=== PATIENT | female | born 1985 | race Caucasian/White ===

== ENCOUNTER 2022-07-01 12:55 | Outpatient (CLI) | payer BC, SELFPAY | END 2022-07-01 12:56 | disposition home or self-care (01) | LOC: US 12:56 | PROVIDERS: PCP Physician Assistant Medical; Visit Provider Pediatrics Neonatal-Perinatal Medicine | DX: Z34.92 Encounter for supervision of normal pregnancy, unspecified, second trimester (principal); Z3A.21 21 weeks gestation of pregnancy | CPT/HCPCS: 76811 ==

== ENCOUNTER 2022-08-19 11:49 | Outpatient (CLI) | payer BC, SELFPAY ==
[2022-08-21 01:21] LABS: Rapid Plasma Reagin (RPR) Non Reactive (Non Reactive)
== END 2022-08-19 11:50 | disposition home or self-care (01) ==
PROVIDERS: PCP Physician Assistant Medical; Visit Provider Obstetrics & Gynecology
DX: Z34.93 Encounter for supervision of normal pregnancy, unspecified, third trimester (principal); Z3A.28 28 weeks gestation of pregnancy
CPT/HCPCS: 86592

== ENCOUNTER 2022-09-04 12:54 | Outpatient (CLI) | payer BC, SELFPAY ==
--- NOTE | 2022-09-04 13:00 | CRLHL7_ITS ---
For Patients: As a result of the Century Cures Act, medical imaging exams and procedure reports are released immediately into your electronic medical record. You may view this report before your referring provider. If you have questions, please contact your health care provider. INDICATION: Third trimester scan, evaluate growth. Renal pelvis follow-up. COMPARISON: 07/01/2022 TECHNIQUE: Real time bustillos scale imaging of the fetus was performed. FINDINGS: Sonographic imaging demonstrates a single living intrauterine gestation. Fetus demonstrates a regular cardiac rate of 132 beats per minute. Fetus has a vertex position. The placenta lies anteriorly. Amniotic fluid volume appears normal and there is a single deepest vertical pocket: 7.0 cm. The estimated weight is 1766gm which lies at the 68th %. On the prior OB ultrasound exam dated 07/01/2022 the estimated weight was at the 80th%. BPD 74th percentile. HC 63rd percentile. AC 80th percentile. FL 34th percentile. The HC/AC ratio measures 1.06 range (0.96-1.15). IMPRESSION: Left renal pelvis measures 3 millimeters, considered normal in the 3rd trimester. Right renal pelvis measures 5.2 millimeters. Less than 7 millimeters considered normal in the 3rd trimester. Additional late third-trimester follow-up could be considered as indicated. Sonographic gestational age 31 weeks 4 days and sonographic due date 11/02/2022. Sonographic age is 1 week ahead of the clinical age. Estimated weight is 68th percentile. Abdominal circumference 80th percentile. Dictated by Abhilash Blevins MD @ 09/07/2022 10:22:39 AM (Electronically Signed)
== END 2022-09-04 12:55 | disposition home or self-care (01) ==
LOC: AMB 12:55
PROVIDERS: PCP Physician Assistant Medical; Visit Provider Obstetrics & Gynecology
DX: Z34.93 Encounter for supervision of normal pregnancy, unspecified, third trimester (principal); Z3A.31 31 weeks gestation of pregnancy
CPT/HCPCS: 76816

== ENCOUNTER 2022-10-12 09:50 | Outpatient (CLI) | payer BC, SELFPAY ==
--- NOTE | 2022-10-12 09:45 | CRLHL7_ITS ---
For Patients: As a result of the Century Cures Act, medical imaging exams and procedure reports are released immediately into your electronic medical record. You may view this report before your referring provider. If you have questions, please contact your health care provider. INDICATION: Third trimester scan, evaluate growth. COMPARISON: 09/04/2022 TECHNIQUE: Real time bustillos scale imaging of the fetus was performed as well as color Doppler and spectral Doppler analysis of the umbilical artery. FINDINGS: Sonographic imaging demonstrates a single living intrauterine gestation. Fetus demonstrates a regular cardiac rate of 139 beats per minute. Fetus has a vertex position. The placenta lies anteriorly. Amniotic fluid volume appears normal and there is a single deepest vertical pocket: 2.7 cm. The estimated weight is 2646gm which lies at the 32nd %. On the prior OB ultrasound exam dated 09/04/2022 the estimated weight was at the 68th%. BPD 22nd percentile. HC 20th percentile. AC 38th percentile. FL 33rd percentile. The HC/AC ratio measures 1.02 range (0.93-1.10). IMPRESSION: Sonographic gestational age 35 weeks 3 days and sonographic due date 11/13/2022. Sonographic age is 4 days behind the clinical age. Estimated weight 32nd percentile. Abdominal circumference 38th percentile. Dictated by Abhilash Blevins MD @ 10/12/2022 11:15:46 AM (Electronically Signed)
== END 2022-10-12 09:51 | disposition home or self-care (01) ==
LOC: US 09:51
PROVIDERS: PCP Physician Assistant Medical; Visit Provider Obstetrics & Gynecology
DX: Z34.93 Encounter for supervision of normal pregnancy, unspecified, third trimester (principal); Z3A.36 36 weeks gestation of pregnancy
CPT/HCPCS: 76816; 87081; 87653

== ENCOUNTER 2022-10-14 15:51 | Outpatient (CLI) | payer BC, SELFPAY ==
--- NOTE | 2022-10-14 16:00 | CRLHL7_ITS ---
For Patients: As a result of the Century Cures Act, medical imaging exams and procedure reports are released immediately into your electronic medical record. You may view this report before your referring provider. If you have questions, please contact your health care provider. INDICATION: ANGELA check COMPARISON: 10/12/2022 TECHNIQUE: Real time bustillos scale imaging of the fetus was performed. FINDINGS: Sonographic imaging demonstrates a single living intrauterine gestation. Fetus demonstrates a regular cardiac rate of 125 beats per minute. Fetus has a vertex position. The placenta lies anteriorly. Amniotic fluid volume appears lower limits of normal and there is a single deepest vertical pocket: 4.6 cm. ANGELA 10.3 cm. IMPRESSION: ANGELA 10.3 cm. Dictated by Abhilash Blevins MD @ 10/16/2022 8:20:50 AM (Electronically Signed)
== END 2022-10-14 15:52 | disposition home or self-care (01) ==
LOC: US 15:53
PROVIDERS: PCP Physician Assistant Medical; Visit Provider Obstetrics & Gynecology
DX: Z34.90 Encounter for supervision of normal pregnancy, unspecified, unspecified trimester (principal)
CPT/HCPCS: 76815

== ENCOUNTER 2022-10-19 12:21 | Outpatient (CLI) | payer BC, SELFPAY ==
--- NOTE | 2022-10-19 12:15 | CRLHL7_ITS ---
For Patients: As a result of the Century Cures Act, medical imaging exams and procedure reports are released immediately into your electronic medical record. You may view this report before your referring provider. If you have questions, please contact your health care provider. INDICATION: ANGELA check, question loss of fluid COMPARISON: 10/14/2022 TECHNIQUE: Real-time bustillos-scale imaging of the pelvis was performed. FINDINGS: position vertex. heart rate 131 beats per minute. Placenta anterior. ANGELA 10.7 cm. ANGELA previously was 10.3 cm. IMPRESSION: Similar ANGELA of 10.7 cm. Dictated by Abhilash Blevins MD @ 10/19/2022 12:52:56 PM (Electronically Signed)
== END 2022-10-19 12:22 | disposition home or self-care (01) ==
LOC: US 12:22
PROVIDERS: PCP Physician Assistant Medical; Visit Provider Obstetrics & Gynecology
DX: Z34.93 Encounter for supervision of normal pregnancy, unspecified, third trimester (principal); Z3A.37 37 weeks gestation of pregnancy
CPT/HCPCS: 76815

== ENCOUNTER 2022-10-28 11:14 | Outpatient (CLI) | payer BC, SELFPAY ==
--- NOTE | 2022-10-28 11:30 | CRLHL7_ITS ---
For Patients: As a result of the Century Cures Act, medical imaging exams and procedure reports are released immediately into your electronic medical record. You may view this report before your referring provider. If you have questions, please contact your health care provider. INDICATION: DECREASED MOVEMENT COMPARISON: 10/19/2022 TECHNIQUE: Real time bustillos scale imaging of the fetus was performed. FINDINGS: Sonographic imaging demonstrates a single living intrauterine gestation. Fetus demonstrates a regular cardiac rate of 127 beats per minute. Fetus has a vertex position. The placenta lies anteriorly. Amniotic fluid volume appears normal and there is a single deepest vertical pocket: 4.6 cm. The estimated weight is 3227gm which lies at the 44th %. On the prior OB ultrasound exam dated 10/12/2022 the estimated weight was at the 68th%. BPD 9th percentile. HC less than 3rd percentile. AC 80th percentile. FL 15th percentile. The HC/AC ratio measures 0.91 range (0.92-1.06). Normal gross body movements, tone and respiratory activity. IMPRESSION: Normal biophysical profile 06/29. Sonographic gestational age 36 weeks 5 days and sonographic due date 11/20/2022. Sonographic age 11 days behind the clinical age. Estimated weight 44th percentile. Abdominal circumference 80th percentile. Dictated by Abhilash Blevins MD @ 10/30/2022 8:28:54 AM (Electronically Signed)
== END 2022-10-28 11:15 | disposition home or self-care (01) ==
LOC: US 11:15
PROVIDERS: PCP Physician Assistant Medical; Visit Provider Obstetrics & Gynecology
DX: O36.8130 Decreased fetal movements, third trimester, not applicable or unspecified (principal); Z3A.36 36 weeks gestation of pregnancy
CPT/HCPCS: 76816; 76819

== ENCOUNTER 2022-10-31 03:23 | Inpatient (IN) | payer BC, SELFPAY ==
[2022-10-31] VITALS (124 sets, daily range): BP systolic 70–135; BP diastolic 36–90; PULSE 71–123; RESP 16; TEMP 36.4–37.3; O2SAT 77–100; BMI 27.9
[2022-10-31 03:03] LABS: Amnisure Rom* POSITIVE
[2022-10-31 04:15] LABS: SARS PCR* Negative SARS-CoV-2 (Negative)
--- NOTE | 2022-10-31 07:06 | W.PM.LDBA ---
Subjective History of Present Illness Date Seen: 10/31/22 Narrative: Patient is being admitted to Labor and Delivery for premature rupture membranes. She is a 37 year old at 38 weeks, 5 days gestation. She had rupture membranes at 2:00 a.m. clear fluid. She has since begun to labor spontaneously. Ob problem list Specific Issues/Plans blood type:?B positive 1. Hx of GDM, Recommended early glucose test, testing 4 times a day at 20 weeks and 28 weeks: Normal no GDM diagnosis this Will plan to continue to monitor randomly at home Growth US at 36 weeks:vertex presentation, SDP: 2.7 cm, EFW: 2646 g, 32 percentile. BPD 22 percentile, HC 20 percentile, AC 38th percentile, FL 33rd percentile.? 2. Depression ?? ? Taking Celexa 30 mg, increased . Doing well. 3. Advanced maternal age Recommended level 2 ultrasound -Bilateral renal pelvis measuring 4mm, otherwise normal, will order a follow up growth and to reassess renal pelvis measurements at 30 weeks -09/04/22:? EFW: 68th percentile, BPD: ? percentile, HC: 63 percentile, AC:? 88th percentile, FL: 34th percentile.? Vertex presentation, SDP: 7.0 cm.? Renal pelvis measurements:? Left: 3 mm, right: 5 mm.? This is normal in the 3rd trimester.? No further follow-up indicated. 4. Wants elective IOL at 39 weeks Her full history and physical was dictated by on 10/12/[address] Rodriguez. Please see this for details. OB - H&P: Exam Physical Exam: Vital signs: Temp Pulse Resp BP Pulse Ox 97.5 F L 99 16 128/85 98 10/31/22 06:05 10/31/22 02:18 10/31/22 06:05 10/31/22 02:18 10/31/22 02:15 Narrative: Physical exam: General: No acute distress Psych: Alert and oriented x3, full affect HEENT: Normocephalic, atraumatic Neck: No cervical adenopathy, no thyromegaly Heart: Regular rate and rhythm, no murmur rub or gallop Lungs: Clear to auscultation bilaterally Abdomen: Soft, nontender, gravid, cephalic lie Lower extremities: No edema or erythema Pelvic exam: Cervix 4 cm, 80%,-2 station, posterior, soft. I attempted rupture of forebag, but received very little fluid in addition to what she was already having and there was no bulging bag Heart tracing: Baseline 130, accelerations to 150, no decelerations, moderate variability OB - Problem Based A/P Additional Plan (1) PROM (premature rupture of membranes): Status: Acute Plan 37-year-old [id number] woman at 38 weeks, 5 days gestation with premature rupture membranes, now progressing through latent labor spontaneously. Reassuring status with category 1 tracing. GBS negative. Expectant management at this time. Epidural as desired. Anticipate spontaneous vaginal delivery. Delivery/Labor/Induction Plan Plan: expectant management
[2022-10-31] MEDS: LACTATED RINGERS 1000 ML 1,000 ML 1200 ML IV (08:08)
[2022-10-31] MEDS: LIDOCAINE 2% (PF) 5 ML VIAL EPIDURAL (09:05)
[2022-10-31] MEDS: ROPIVACAINE 0.2 % PF 10 ML INJ 20 MG EPIDURAL (09:05)
[2022-10-31] MEDS: ROPIVACAINE 0.2% 100 ml 100 ML 12 MG EPIDURAL (09:05)
[2022-10-31] MEDS: LACTATED RINGERS 1000 ML 1,000 ML 125 ML IV ×2 (09:23→13:20)
[2022-10-31] MEDS: OXYTOCIN 30 unit/500 ML in NS 30 UNIT/500 ML BAG IVPB (10:44)
--- NOTE | 2022-10-31 17:32 | PM.OBPRCVD ---
Procedure Delivery date: 10/31/22 Procedure Done: Global Procedure Details: HPI: Renay Easley is a 37 year-old G 2 P 1001 now 2 admitted on 10/31/2022 at 2:00 a.m. at 38 Weeks, 5 Days gestation for SROM and spontaneous onset of labor.. S from occurred at 1:00 a.m. on 10/31/2022 with clear fluid. Labor Analgesia: Epidural Pitocin: Yes: Maximum 9 milliunits/minute Labor onset: 10/31/2022 at 1:00 a.m.. Complete: 10/31/2022 at 3:06 p.m. Pushin10/31/2022 at 3:11 p.m.. heart tones during second stage were: Category 2, reassuring. There were sporadic late decelerations when manual rotation of the vertex was attempted x2. The presentation was noted to be OT x2 with unsuccessful manual rotation. Side lying release was performed and the vertex then rotated to OA spontaneously. At 5:09 p.m. a viable male delivered in vertex direct OA presentation over second-degree perineal laceration via spontaneous vaginal delivery. The infant was placed on maternal abdomen. Cord was clamped and cut after a 60 second delay. Nose and mouth were bulb suctioned. Infant weight pending. 8 at 1 minute and 9 at 5 minutes. Shoulder dystocia: No. Nuchal cord: No Placenta delivered spontaneously incomplete at 5:16 p.m. with a 3 vessel cord. Laceration(s): Second-degree perineal. Repaired using 3-0 Vicryl suture in a/the usual manner. One vertical mattress suture was placed at the inferior aspect of the laceration repair using 3-0 Vicryl. Blood loss: 125 mL. Blood loss measurement type: Quantitate Sponge and needles counts are correct. Specimen: None Mother and infant were stable after delivery. 's name: Pen The patient is planning on breast feeding. Intrapartal Events: Labor Augmentation Delivery augmentation: pitocin Delivery monitor: internal FHT Route of delivery: Episiotomy description: None Laceration description: Perineal - 2nd Degree Delivery repair: Vicryl Estimated blood loss (mL): 125 Anesthesia type: Epidural Disposition: floor
[2022-10-31] MEDS: LANOLIN CREAM 1 APPLIC TOPICAL (20:42)
[2022-10-31] MEDS: IBUPROFEN 600 MG TABLET PO (20:45)
[2022-10-31] MEDS: DOCUSATE SODIUM 100 MG CAPSULE PO (20:46)
[2022-10-31] MEDS: ACETAMINOPHEN 500 MG TABLET 1000 MG PO (22:45)
[2022-11-01] MEDS: IBUPROFEN 600 MG TABLET PO ×4 (03:34→21:25)
[2022-11-01 04:51] VITALS: BP 115/77; PULSE 86; RESP 14; TEMP 36.6; O2SAT 95
[2022-11-01] MEDS: ACETAMINOPHEN 500 MG TABLET 1000 MG PO ×3 (06:14→19:23)
[2022-11-01] MEDS: DOCUSATE SODIUM 100 MG CAPSULE PO (09:15)
[2022-11-01 09:17] VITALS: BP 120/72; PULSE 82; RESP 16; TEMP 36.6; O2SAT 98
--- NOTE | 2022-11-01 09:43 | PM.OBPNVD1 ---
OB - PN:Subj Subjective Time Seen by Provider: 09:43 Date Seen: 11/01/22 Narrative: HPI: The patient is ppd# 1 from an uncomplicated vaginal delivery. She feels well but tired. She is breast feeding without difficulty. She states her pain is well with current pain medication. She is passing flatus. Ambulating without difficulty. Tolerating a regular diet. Urine output is adequate. She is urinating without difficulty. Lochia: Minimal. Objective: General: No acute distress. Vital signs: See the patient's electronic medical record. Psychiatric: Alert and oriented x3. Appropriate affect. Heart: Regular rate and rhythm without gallop, rub or murmur. Chest: Clear to auscultation bilaterally. Abdomen: Soft, nontender and nondistended with normal bowel sounds throughout. Fundus is firm at 2 cm below the umbilicus in the midline. Fundus is nontender to palpation. Perineum: Mild edema with well-healed 2nd degree laceration. Extremities: No edema or pain. Assessment/Plan: day 1 from an uncomplicated vaginal delivery. hemoglobin: 11.0 Continue and see if she desires. Planning discharge home tomorrow. OB - PN: Obj Exam Physical Exam: Vital signs: Temp Pulse Resp BP Pulse Ox O2 Del Method 97.9 F 82 16 120/72 98 11/01/22 09:17 11/01/22 09:17 11/01/22 09:17 11/01/22 09:17 11/01/22 09:17 11/01/22 09:17 OB - PN: Obj Data Labs Labs: Laboratory Results - last 24 hr 11/01/22 07:50 Hgb 11.0 L OB - PN: A/P Vaginal Delivery Assessment and Plan (1) Normal spontaneous vaginal delivery: Status: Acute
--- NOTE | 2022-11-01 10:25 | PM.OBPNVD1 ---
OB - PN:Subj Subjective Time Seen by Provider: 10:25 Date Seen: 11/01/22 Narrative: HPI: The patient is ppd# 1 from an uncomplicated vaginal delivery. She feels well but tired. She is breast feeding without difficulty. She states her pain is well with current pain medication. She is passing flatus. Ambulating without difficulty. Tolerating a regular diet. Urine output is adequate. She is urinating without difficulty. Lochia: Minimal. Objective: General: No acute distress. Vital signs: See the patient's electronic medical record. Psychiatric: Alert and oriented x3. Appropriate affect. Heart: Regular rate and rhythm without gallop, rub or murmur. Chest: Clear to auscultation bilaterally. Abdomen: Soft, nontender and nondistended with normal bowel sounds throughout. Fundus is firm at 1 cm below the umbilicus in the midline. Fundus is nontender to palpation. Perineum: Mild edema with well-healed 2nd degree laceration. Extremities: No edema or pain. Assessment/Plan: day 1 from an uncomplicated vaginal delivery. hemoglobin: 11.0. Prior to delivery her hemoglobin was 12.2. Continue and see if she desires. Planning discharge home tomorrow. OB - PN: Obj Exam Physical Exam: Vital signs: Temp Pulse Resp BP Pulse Ox O2 Del Method 97.9 F 82 16 120/72 98 11/01/22 09:17 11/01/22 09:17 11/01/22 09:17 11/01/22 09:17 11/01/22 09:17 11/01/22 09:17 OB - PN: Obj Data Labs Labs: Laboratory Results - last 24 hr 11/01/22 07:50 Hgb 11.0 L OB - PN: A/P Vaginal Delivery Assessment and Plan (1) PROM (premature rupture of membranes): Status: Acute
[2022-11-01 11:34] VITALS: BP 122/79; PULSE 97; RESP 16; TEMP 36.7; O2SAT 97
[2022-11-01 15:52] VITALS: BP 121/83; PULSE 88; RESP 16; TEMP 36.4; O2SAT 98
[2022-11-02 00:49] VITALS: BP 130/88; PULSE 81; RESP 14; TEMP 36.6; O2SAT 98
[2022-11-02] MEDS: ACETAMINOPHEN 500 MG TABLET 1000 MG PO (03:47)
--- NOTE | 2022-11-02 08:16 | PM.OBDSVD1 ---
DS: Providers Provider Date Seen: 11/02/22 Date of admission: 10/31/22 03:23 Primary care physician: Geremias Mendoza PA-C Admitting Clinician: Chasity Fox MD Attending Physician on discharge: Chasity Fox MD Date of Discharge: 11/02/22 DS: Diagnosis Discharge Diagnosis (1) Lactating mother: Status: Acute (2) Normal spontaneous vaginal delivery: Status: Acute (3) Obstetric vaginal laceration with second degree perineal laceration: Status: Acute Exam Narrative: Exam Narrative: Discharge Examination? GENERAL APPEARANCE:? normal affect, alert, no distress? MOOD:? appropriate? CHEST:? clear to auscultation and percussion? HEART:? regular rate and rhythm? ABDOMEN:? soft, non-tender the uterine fundus is 2 cm Below Umbilicus, Midline and is appropriate for the stage of recovery.? PERINEUM:? mild edema of the perineum, there is a 2nd degree that is healing well.? EXTREMITIES:? normal and no edema? Patient has no complaints? No active bleeding?? Doing well?? She is requesting discharge home.? Const: Vital Signs, click to edit/add: Vital Signs - 24 hr 11/01/22 09:17 11/01/22 11:34 11/01/22 15:52 Temperature 97.9 F 98.0 F 97.5 F L Pulse Rate [Pulse Oximeter] 82 97 88 Respiratory Rate 16 16 16 Blood Pressure [Ri ght Arm] 120/72 122/79 121/83 Pulse Oximetry 98 97 98 Oxygen Delivery Me thod Room Air Room Air Room Air 11/02/22 00:49 Temperature 97.8 F Pulse Rate [Pulse Oximeter] 81 Respiratory Rate 14 Blood Pressure [Ri ght Arm] 130/88 Pulse Oximetry 98 Oxygen Delivery Me thod Room Air Documenting provider has reviewed patient's vital signs: yes OB - DS: Summary Hospital Course Hospital Course: Patient is a 37year old, G 2 now P 2? admitted on 10/31/22 at 38 Weeks, 6 Days gestation for SROM.? She had an uncomplicated vaginal delivery.? She delivered a viable male .? She is breast feeding and reports things are well.? the patient has done well.? Her pain is well controlled with current medications.? She has no new complaints.? Vitals have been stable. She has remained afebrile. She is voiding without difficulty. She is passing gas and has not had a bowel movement. She is ambulating and denies any dizziness. She is planning partner vasectomy for control and unsure what she plans until after he has had his testing after the procedure.? Peripartum Data Infant delivery method: Vaginal Laceration description: Perineal - 2nd Degree Episiotomy description: None complications: none Gender: Male Discharge Plan: Home Status at Discharge Functional status at discharge: independent ambulation Overall status at discharge: patient is progressing back to baseline Time Spent with Patient Time attestation: Total time spent providing and/or coordinating discharge services: Discharge Plan Discharge Disposition: Home, Self-Care Date of Admission: 10/31/22 03:23 Attending Provider on Discharge: Jocelyn Dai Primary Care Provider: Geremias Mendoza Condition: Stable Anticipated Discharge Date/Time: 11/02/22 11:00 Discharge Medications: New docusate sodium 100 mg Capsule 100 mg PO BID PRN (Reason: constipation) Qty: 100 0RF ibuprofen 600 mg Tablet 600 mg PO Q6H PRNQty: 30 0RF Continued prenat.vits,zachary,nxp-mxci-skpdb Tablet 1 tab PO QDAY citalopram 10 mg tablet 10 mg PO DAILY citalopram 20 mg tablet 20 mg PO DAILY docusate sodium 100 mg capsule PO PRN No Action (DME) Test Strips Misc See Rx Instructions .MEDSUPPLY Qty: 100 3RF Rx Instructions: Test blood sugar 4 times daily. (DME) lancets Misc See Rx Instructions .MEDSUPPLY Qty: 100 3RF Rx Instructions: Test blood sugar 4 times daily. Discharge Orders: Discharge Order (Routine); Ordered 11/02/22 Ordered By: Jocelyn Dai Patient Education: OB Over the Counter Medication Information, OB Vaginal/Breast Feeding Additional Instructions: Discharge instructions were reviewed with the patient including signs and symptoms of infection and home going medications. ACTIVITY RESTRICTIONS No lifting restrictions No exercise restrictions Nothing vaginally for 6 weeks (no intercourse or tampons) Off Work or School for a minimum of 6 weeks. [facility]: Optional: 2 week exam: answer infant care questions, screen for depression/anxiety, review contraceptive options. 6 week visit: Annual exam. consultation services are available to all mothers and babies for the first year after delivery.? To make an appointment, please call [phone]. Activity Level: No Restrictions and Activity as Tolerated Discharge Diet: Regular Follow Up Appointments: [facility] [Provider Group] Purvi Mccabe MD [Staff Physician] - Geremias Mendoza PA-C [Primary Care Provider] - Forms: [employer] Info Instructions
[2022-11-02 08:18] VITALS: BP 126/82; PULSE 75; RESP 16; TEMP 36.7; O2SAT 98
[2022-11-02] MEDS: DOCUSATE SODIUM 100 MG CAPSULE PO (08:22)
[2022-11-02] MEDS: IBUPROFEN 600 MG TABLET PO (08:22)
== END 2022-11-02 11:15 | disposition home or self-care (01) | DRG 560 ==
LOC: OB OUT 11-04 11:20
PROVIDERS: Obstetrics & Gynecology; Admitting Provider Obstetrics & Gynecology; PCP Physician Assistant Medical; Visit Provider Obstetrics & Gynecology
DX: O42.02 Full-term premature rupture of membranes, onset of labor within 24 hours of rupture (principal); O70.1 Second degree perineal laceration during delivery; O99.344 Other mental disorders complicating childbirth; F32.A Depression, unspecified; Z86.32 Personal history of gestational diabetes; Z3A.38 38 weeks gestation of pregnancy; Z37.0 Single live birth
CPT/HCPCS: 36415; 76816; 76819; 84112; 85018; 87635; 99213; A9270; J2795; J7120